=== PATIENT | male | born 1985 | race American Indian/Alaskan Native ===

== ENCOUNTER 2016-09-15 07:39 | Emergency (ER) | payer OTHER ==
[2016-09-15 07:49] VITALS: O2SAT 98
--- NOTE | 2016-09-15 08:15 | C.PDOC ---
History Of Present Illness 31-year-old male, presents to the emergency department with complaints of injury to left foot and ankle after falling in shower last night. (-) LOC, Pain is persistent in nature and worse with movement. Denies numbness/weakness. Time Seen by Provider: 09/15/16 07:49 Chief Complaint (Nursing): Lower Extremity Problem/Injury History Per: Patient History/Exam Limitations: no limitations Onset/Duration Of Symptoms: Hrs Current Symptoms Are (Timing): Still Present Severity: Moderate Recent travel outside of the [place]: No Additional History Per: Patient - Hip Description Of Injury: Fell - Knee Description Of Injury: Twisted Currently Unable To: Bear Weight - Ankle/Foot Description Of Injury: Fell Past Medical History Reviewed: Historical Data, Nursing Documentation, Vital Signs Vital Signs: Last Vital Signs Temp 98 F 09/15/16 09:15 Pulse 69 09/15/16 09:15 Resp 20 09/15/16 09:15 BP 127/83 09/15/16 09:15 Pulse Ox 98 09/15/16 08:39 - Medical History PMH: No Chronic Diseases Surgical History: No Surg Hx Family History: States: No Known Family Hx - Social History Hx Alcohol Use: Yes Hx Substance Use: No - Immunization History Hx Tetanus Toxoid Vaccination: No Hx Influenza Vaccination: No Hx Pneumococcal Vaccination: No Review Of Systems Except As Marked, All Systems Reviewed And Found Negative. Constitutional: Negative for: Fever, Chills Respiratory: Negative for: Shortness of Breath Gastrointestinal: Negative for: Nausea, Vomiting Musculoskeletal: Positive for: Foot Pain Neurological: Negative for: Weakness, Numbness Physical Exam - Physical Exam Appears: Non-toxic, No Acute Distress Skin: Warm, Dry, No Rash Head: Atraumatic, Normacephalic Eye(s): bilateral: Normal Inspection, PERRL Neck: Normal ROM Chest: Symmetrical Respiratory: No Accessory Muscle Use Back: Normal Inspection Extremity: Tenderness (Lateral aspect of foot and malleolus), No Deformity Extremity: Left: Limited ROM To Joint (left ankle) Neurological/Psych: Oriented x3 Gait: Steady ED Course And Treatment O2 Sat by Pulse Oximetry: 98 Pulse Ox Interpretation: Normal - Other Rad No standard instances X-Ray: Interpreted by Me Interpretation: ankle X-Ray no fx Progress Note: XRs negative, patients leg will be placed in air cast and dc for outpatient f/u with ortho. Treated with crutches Reassessment Condition: Improved Disposition Counseled Patient/Family Regarding: Studies Performed, Diagnosis, Need For Followup, Rx Given - Disposition Referrals: [facility] [Outside] [facility] [employer] [facility] [Outside] [facility] [place] [Outside] Disposition: HOME/ ROUTINE Disposition Time: 08:50 Condition: STABLE Additional Instructions: Rest, Ice, Elevate Instructions: Ankle Sprain (ED), Ankle Stirrup Splint (ED) Forms: [employer] ([employer] [place]) - POA Present On Arrival: None - Clinical Impression Clinical Impression: Ankle sprain - Scribe Statement The provider has reviewed the documentation as recorded by the Scribe (Zara Latif) All medical record entries made by the Scribe were at my direction and personally dictated by me. I have reviewed the chart and agree that the record accurately reflects my personal performance of the history, physical exam, medical decision making, and the department course for this patient. I have also personally directed, reviewed, and agree with the discharge instructions and disposition.
[2016-09-15 09:19] VITALS: BP 127/83; PULSE 69; RESP 20; TEMP 98
--- NOTE | 2016-09-15 10:22 | RAD ---
PROCEDURE: Left Ankle Radiographs. HISTORY: Pain COMPARISON: None FINDINGS: BONES: Bone alignment and mineralization are normal. There is no acute displaced fracture or bone destruction. JOINTS: Normal. No osteoarthritis. Ankle mortise maintained. Talar dome intact SOFT TISSUES: Normal. OTHER FINDINGS: None. IMPRESSION: No acute fracture or dislocation.
--- NOTE | 2016-09-15 10:26 | RAD ---
PROCEDURE: Left Foot Radiographs. HISTORY: Pain COMPARISON: None. FINDINGS: BONES: Bone alignment and mineralization are normal. There is an acute mildly displaced avulsion fracture in the anterior and lateral calcaneus. JOINTS: Normal. SOFT TISSUES: There is mild lateral soft tissue swelling. OTHER FINDINGS: None. IMPRESSION: Acute mildly displaced avulsion fracture in the anterior and lateral calcaneus.
== END 2016-09-15 09:42 | disposition home or self-care (01) ==
LOC: C.ER 07:39
DX: S93.402A Sprain of unspecified ligament of left ankle, initial encounter (principal); W18.2XXA Fall in (into) shower or empty bathtub, initial encounter; Y93.E1 Activity, personal bathing and showering; Y92.002 Bathroom of unspecified non-institutional (private) residence as the place of occurrence of the external cause
CPT/HCPCS: 73610; 73630; 97116; 97161; 99285; G8978; G8979; G8980